=== PATIENT | male | born 1970 | race Caucasian/White ===

== ENCOUNTER 2022-06-20 15:53 | Emergency (ER) | payer MEDICAID ==
[2022-06-20 16:12] VITALS: BP 153/105
--- NOTE | 2022-06-20 16:32 | ED Physician Documentation ---
PD HPI UPPER EXT INJURY - Stated complaint Stated Complaint: LT FINGER LAC - Chief complaint Chief Complaint: Laceration - History obtained from History obtained from: Patient - History of Present Illness Location: Left, Finger (thumb) Type of injury: Laceration (cut with knife while doing gardening. bled briskly initially, improved with direct pressure.) Where injury occurred: Home Timing - onset: How many hours ago (1), Today Timing - details: Abrupt onset, Still present Worsened by: Palpating Associated symptoms: No: Weakness, Numbness Review of Systems Skin: reports: Laceration (s) Neurologic: denies: Focal weakness, Numbness PD PAST MEDICAL HISTORY - Past Medical History Cardiovascular: None Endocrine/Autoimmune: None - Allergies Allergies/Adverse Reactions: Allergies Allergy/AdvReac Type Severity Reaction Status Date / Time Penicillins Allergy Unknown Verified 06/20/22 16:12 PD ED PE NORMAL - Vitals Vital signs reviewed: Yes - General General: Alert and oriented X 3, No acute distress, Well developed/nourished - Derm Derm: Normal color, Warm and dry - Extremities Extremities: Other (left thumb with laceration on dorsoulnar aspect, not involving nailbed, with some bleeding after home dressing removed. No FB but some mild dirt on skin. ) - Neuro Neuro: Alert and oriented X 3, No motor deficit, No sensory deficit Results - Vitals Vitals: Vital Signs - 24 hr 06/20/22 16:09 Temperature 36.7 C Heart Rate 71 Respiratory 16 Rate Blood Pressure 153/105 H O2 Saturation 99 Oxygen O2 Source Room air Procedures - Laceration (location) left thumb Length in cm: 1.5 Wound type: Linear, Into subcut fat, Clean (with some dirt on skin but not apparent in wound.) Neurovascular status: Sensory intact, Motor intact, Vascular intact Tendon involvement: Tendon intact Anesthesia: Lidocaine 1% Wound preparation: Irrigated copiously NS, Wound explored, To the base Skin layer closure: Nylon, Interrupted, Size #-0 - enter number (4), Sutures - enter # (4) Other: Patient tolerated well, No complications, Neurovascular intact, Dressing applied, Tetanus UTD PD Medical Decision Making - ED course Complexity details: considered differential (thumb laceration with still some bleeding once dressing removed. As such, steri strips and glue would not be efective. shared decision with patient to do suturing. ), d/w patient Departure - Departure Disposition: 01 Home, Self Care Clinical Impression: Thumb laceration Qualifiers: Encounter type: initial encounter Damage to nail status: without damage Foreign body presence: without foreign body Laterality: left Qualified Code(s): S61.012A - Laceration without foreign body of left thumb without damage to nail, initial encounter Condition: Stable Record reviewed to determine appropriate education?: Yes Instructions: ED Laceration Hand Comments: It is okay to wash and shower. Clean off the wound twice a day with soap and water, or peroxide and water. Apply some antibiotic ointment to it to keep it moist. Also to watch for signs of infection such as purulence, redness or increasing pain. Return to your primary care or the ER at the specified time for suture removal. Suture removal 8 to 10 days. Tylenol ibuprofen if needed for pains. Activity as tolerated. Keep it clean when you are out working in outdoors. Discharge Date/Time: 06/20/22 17:29
[2022-06-20] MEDS ORDERED: LIDOCAINE 1% 2 ML VIAL SUBQ STA (16:50)
== END 2022-06-20 17:29 | disposition home or self-care (01) ==
LOC: ED 15:53
DX: S61.012A Laceration without foreign body of left thumb without damage to nail, initial encounter (principal); W26.0XXA Contact with knife, initial encounter; Y93.H2 Activity, gardening and landscaping
CPT/HCPCS: 12001; 99281

== ENCOUNTER 2024-02-06 21:18 | Emergency (ER) | payer MEDICAID ==
[2024-02-06 21:23] VITALS: O2SAT 99
--- NOTE | 2024-02-06 23:34 | ED Physician Documentation ---
PD HPI HEAD INJURY - Stated complaint Stated Complaint: HEAD INJ - Chief complaint Chief Complaint: Trauma Hd/Nk - History obtained from History obtained from: Patient - Additional information Additional information: HPI from patient. Patient says he was working on a fence tonight. 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 As result, the metallic tool struck the vertex of the patient's head, causing a laceration. The patient denies LOC, denies nausea/vomiting. He denies visual changes. He has pain at the site of the injury but denies gener alized headache. He is not able to recall when his last tetanus immunization was and says it is possible it is been more than 10 years.Patient does not take any blood-thinning medication. PD PAST MEDICAL HISTORY - Past Medical History Past Medical History: No Cardiovascular: None Endocrine/Autoimmune: None - Past Surgical History Past Surgical History: No - Present Medications Home Medications: Ambulatory Orders Medication Instructions Recorded Confirmed No Known Home Medications 02/06/24 02/06/24 - Allergies Allergies/Adverse Reactions: Allergies Allergy/AdvReac Type Severity Reaction Status Date / Time Penicillins Allergy Unknown Verified 02/06/24 21:20 - Social History Does the pt smoke?: No Smoking Status: Never smoker Does the pt drink ETOH?: No Does the pt have substance abuse?: No - Immunizations Immunizations are current?: Yes - POLST Patient has POLST: No PD ED PE NORMAL - Vitals Vital signs reviewed: Yes - General General: Alert and oriented X 3, No acute distress, Well developed/nourished - HEENT HEENT: PERRL, EOMI PD ED PE EXPANDED - HEENT HEENT Visual: 1 - laceration (2.5 cm length laceration with mild surround bony tenderness but no bony stepoff or crepitus) Results - Vitals Vitals: Vital Signs - 24 hr 02/06/24 02/07/24 21:20 01:08 Temperature 36.8 C Heart Rate 67 76 Respiratory 16 16 Rate Blood Pressure 150/90 H 163/97 H O2 Saturation 99 99 Oxygen O2 Source Room air Procedures - Laceration (location) Scalp Length in cm: 2.5 Wound type: Linear, Into subcut fat, Clean Anesthesia: Lidocaine 2% with epi Wound preparation: Hibiclens, Irrigated copiously NS, Wound explored, To the base Skin layer closure: Shilpa Other: Patient tolerated well, No complications, Neurovascular intact, Tetanus booster given PD Medical Decision Making - ED course Complexity details: considered differential, d/w patient ED course: Scalp laceration repaired as per procedure note, above. Return precautions reviewed. At this time, there is no indication for emergent study including no indication for imaging such as CT scan. Advised to follow-up with PCP in 7 to 10 days for removal of the shilpa. Departure - Departure Disposition: 01 Home, Self Care Clinical Impression: Scalp laceration Condition: Good Instructions: ED Laceration Scalp Stitch Or Stap, ED Immunization Tetanus and FU Comments: The scalp laceration was repaired with a total of 6 shilpa. Contact your primary care provider when the office next opens to arrange for follow-up appointment in 7 to 10 days for removal of the shilpa. If this cannot be arranged in this timeframe, other options would be a walk-in clinic, urgent care, or else this (or any) emergency department. Discharge Date/Time: 02/07/24 01:09
[2024-02-06] MEDS: LIDOCAINE 2%-EPI 1:100000 20 ML MDV SUBQ STA (23:56)
[2024-02-06] MEDS: TETANUS/DIPHTHERIA/PERTUSSIS 0.5 ML SYRINGE IM ONE (23:57)
[2024-02-07] MEDS: BACITRACIN ZINC OINT 1 PACKET TOP STA (01:08)
[2024-02-07 01:19] VITALS: BP 163/97
== END 2024-02-07 01:09 | disposition home or self-care (01) ==
LOC: ED 21:18
DX: S01.01XA Laceration without foreign body of scalp, initial encounter (principal); W22.8XXA Striking against or struck by other objects, initial encounter; Z23 Encounter for immunization
CPT/HCPCS: 12001; 90471; 99283